=== PATIENT | female | born 1945 | race Caucasian/White ===

== ENCOUNTER 2021-02-27 05:29 | Observation (INO) | payer MEDICARE, BC ==
[~2021-02-27] VITALS: Ht 157.6 cm; Wt 77.3 kg
[2021-02-27 05:56] LABS: BASO % 0.4 % (0.0-2.0); EOS # 0.1 (0.0-0.7); GRAN # 6.7 (1.4-6.5); GRAN % 73.7 % (42.2-75.2); HEMATOCRIT 39.4 % (37.0-47.0); HEMOGLOBIN 12.4 g/dl (12.5-16.0); LYMPH # 1.7 (1.2-3.4); LYMPH % 18.9 % (20.0-51.0); MEAN CELL VOLUME 93 fl (80.0-100.0); MEAN CORPUSCULAR HEMOGLOBIN 29 pg (27.0-31.0); MEAN CORPUSCULAR HGB CONC 32 g/dl (33.0-37.0); MEAN PLATELET VOLUME 11.6 fl (7.4-10.4); MONO # 0.5 (0.1-0.6); MONO % 5.8 % (1.7-9.3); PLATELET COUNT 216 K/mm3 (130-400); RED BLOOD COUNT 4.25 M/mm3 (4.10-5.30); REDCELL DISTRIBUTION WIDTH-CV 13.3 % (11.5-14.5)
[2021-02-27 06:04] LABS: PROTHROMBIN TIME 10.7 SECONDS (9.7-12.8)
[2021-02-27 06:06] LABS: PARTIAL THROMBOPLASTIN TIME 27.4 SECONDS (26.0-37.0)
[2021-02-27 06:09] LABS: ALANINE AMINOTRANSFERASE 124 U/L (4-34); ALBUMIN 4.5 gm/dL (3.5-5.0); ALKALINE PHOSPHATASE 224 U/L (50-136); ANION GAP 7 mmol/L (7-16); AST,SGOT 371 U/L (15-37); BILIRUBIN,TOTAL 0.5 mg/dL (0.0-1.0); BLOOD UREA NITROGEN 21 mg/dL (7-17); CALCIUM 9.6 mg/dL (8.4-10.2); CARBON DIOXIDE 29 mmol/L (22-30); CHLORIDE 106 mmol/L (98-107); CREATININE, serum 0.82 (0.52-1.25); GLUCOSE 128 mg/dL (74-106); LIPASE 113 U/L (23-300); POTASSIUM 3.9 mmol/L (3.4-5.0); SODIUM 142 mmol/L (137-145); TOTAL PROTEIN 8.1 gm/dL (6.4-8.2)
[2021-02-27 06:22] LABS: TROPONIN-I < 0.012 ng/mL (0.000-0.035)
[2021-02-27] MEDS ORDERED: FLONASE NASAL S16 GM NS (09:04)
[2021-02-27] MEDS ORDERED: PLAVIX 75MG TAB75 MG PO ×2 (09:04→09:56)
[2021-02-27] MEDS ORDERED: WELLBUTRIN XL150 MG PO ×2 (09:05→10:04)
[2021-02-27] MEDS ORDERED: NORVASC 10MG10 MG PO ×2 (09:05→10:02)
[2021-02-27] MEDS ORDERED: SONATA 10MG10 MG PO ×2 (09:05→10:06)
[2021-02-27] MEDS ORDERED: PRINIVIL40 MG PO (09:05)
[2021-02-27] MEDS ORDERED: LASIX 20MG TABL20 MG PO ×2 (09:05→09:59)
[2021-02-27] MEDS ORDERED: ZOLOFT 50MG50 MG PO ×2 (09:06→10:03)
[2021-02-27] MEDS ORDERED: PROTONIX20 MG PO (09:06)
[2021-02-27] MEDS ORDERED: COREG 3.123.125 MG/T PO (09:06)
[2021-02-27] MEDS ORDERED: CRESTOR20 MG PO ×2 (09:13→10:01)
[2021-02-27 09:46] VITALS: BP 137/47; PULSE 61; TEMP 98
[2021-02-27] MEDS ORDERED: ASPIRIN 81M81 MG/TA2 PO ×2 (09:54→09:56)
[2021-02-27] MEDS ORDERED: CARAFATE 1GM1 G PO ×2 (09:56→10:02)
[2021-02-27] MEDS ORDERED: THE MEDICINE S200 M2 PO (09:57)
[2021-02-27] MEDS ORDERED: VOLTAREN 75 DR75 MG PO (09:58)
[2021-02-27] MEDS ORDERED: FLONASEALLERGY NS (09:59)
[2021-02-27] MEDS ORDERED: PEPCID 20MG TAB20 MG PO (10:00)
[2021-02-27] MEDS ORDERED: KLOR-CON M2020 MEQ PO (10:00)
[2021-02-27] MEDS ORDERED: ZESTRIL40 MG PO (10:00)
[2021-02-27] MEDS ORDERED: PRESERVISION1 SGL PO (10:01)
[2021-02-27] MEDS ORDERED: PROBIOTIC ACID1 EAC3 PO (10:03)
[2021-02-27] MEDS ORDERED: VITAMIND3 5000 PO (10:04)
--- NOTE | 2021-02-27 11:55 | NUR ---
Pt continues to do well. She is resting in bed with pain 3/10. Call light within reach, will continue to monitor
[2021-02-27 13:30] VITALS: BP 167/50; PULSE 67; TEMP 98.2
--- NOTE | 2021-02-27 14:15 | NUR ---
Pt seen by physician, new orders entered. Pt aware that she can have clear liquids at this time and then is to not have anything to eat or drink after midnight for procedure tomorrow. Pain medication given for pain rating 3/10. Pt states that it is just always there. Pt is standby assist to the restroom. IVF infusing. No other needs, will continue to monitor
[2021-02-27 15:46] VITALS: BP 139/54; PULSE 71; TEMP 98.1
--- NOTE | 2021-02-27 18:00 | NUR ---
Pt has continued to do well. Taking clear liquids slowly, minimal needs, call light within reach
[2021-02-27 19:31] VITALS: BP 146/45; PULSE 74; TEMP 98.4
--- NOTE | 2021-02-27 22:15 | NUR ---
Pt. sitting up in bed. Pt. is A&OX3, assessment complete. IV to lt. hand patent. Pt. denies pain or other needs, call light within reach.
[2021-02-27 23:42] VITALS: BP 149/48; PULSE 61; TEMP 98
[2021-02-28 03:34] VITALS: BP 149/62; PULSE 63; TEMP 98.3
[2021-02-28 06:11] LABS: BASO % 0.4 % (0.0-2.0); EOS # 0.2 (0.0-0.7); EOS % 3.4 % (0-4.0); GRAN # 2.6 (1.4-6.5); GRAN % 54.1 % (42.2-75.2); HEMOGLOBIN 11.3 g/dl (12.5-16.0); LYMPH # 1.6 (1.2-3.4); LYMPH % 34.5 % (20.0-51.0); MEAN CELL VOLUME 95 fl (80.0-100.0); MEAN CORPUSCULAR HEMOGLOBIN 30 pg (27.0-31.0); MEAN CORPUSCULAR HGB CONC 32 g/dl (33.0-37.0); MEAN PLATELET VOLUME 12.2 fl (7.4-10.4); MONO # 0.4 (0.1-0.6); MONO % 7.4 % (1.7-9.3); PLATELET COUNT 167 K/mm3 (130-400); RED BLOOD COUNT 3.79 M/mm3 (4.10-5.30); REDCELL DISTRIBUTION WIDTH-CV 13.5 % (11.5-14.5)
[2021-02-28 06:20] LABS: HEMATOCRIT 35.8 % (37.0-47.0)
[2021-02-28 06:26] LABS: ALBUMIN 3.7 gm/dL (3.5-5.0); BILIRUBIN,TOTAL 0.6 mg/dL (0.0-1.0); CALCIUM 8.9 mg/dL (8.4-10.2); CREATININE, serum 0.68 (0.52-1.25); POTASSIUM 4.2 mmol/L (3.4-5.0); TOTAL PROTEIN 6.5 gm/dL (6.4-8.2)
[2021-02-28 07:53] VITALS: BP 151/53; PULSE 61; TEMP 97.6
--- NOTE | 2021-02-28 09:57 | NUR ---
Patient is sitting in chair, alert and orientd, vss, reports low disconfort in abdomen 1 in the numeric rate. No further needs at the moment.
--- NOTE | 2021-02-28 11:10 | NUR ---
[facility] met with patient to discuss discharge planning. Patient lives in [place] with her friend, Bassem (ph#[phone]) and sees Dr. Dante Castellanos for primary care. Patient obtains medications from [facility] with no difficulties. Patient uses a CPAP and no other DME. Patient is independent with ADLS and plans to return home upon discharge. Patient does not have Advance Directives at this time and is not interested in setting up [facility] at this time. Patient's legal next of kin would be her children Edwina Gannon (ph#[phone]) and Terry Fabián. PT/OT evaluated patient and recommended home. Discharge Plan: Home with Bassem.
--- NOTE | 2021-02-28 11:14 | NUR ---
PT has been up and took a shower. IV to her right hand infiltrated, [facility]. Pt doing well, remains NPO, awaiting ERCP
[2021-02-28 12:50] VITALS: BP 151/53; PULSE 61; TEMP 97.6
--- NOTE | 2021-02-28 14:15 | NUR ---
Pt off the floor for ERCP
[2021-02-28 15:30] VITALS: BP 171/54; PULSE 73
--- NOTE | 2021-02-28 15:31 | NUR ---
Pt arrived to the floor from ERCP. She is alert and oriented, no pain complaints and is steady on her feet. Aware of the advancing of her diet. Has used the restroom.
[2021-02-28 16:00] VITALS: BP 152/43; PULSE 67
--- NOTE | 2021-02-28 16:07 | NUR ---
Pt tolerating clear liquid diet, no pain complaints, call light within reach.
--- NOTE | 2021-02-28 18:17 | NUR ---
Patient is sitting at bed side, reports pain in her legs, and lower back. Rates it 8 in a numeric scale. Review of available pain meds to provide.
--- NOTE | 2021-02-28 18:30 | NUR ---
Pt having complaints of pain in her lower back/leg. She stated that she has this often and usually takes Tylenol. Attempted to call [facility] with no answer. IV MS given, report given to SHELBY Parra
[2021-02-28 20:18] VITALS: BP 164/80; PULSE 64; TEMP 98.3
--- NOTE | 2021-02-28 21:30 | NUR ---
Pt. sitting up at bedside. Pt. is A&OX3, assessment complete. Pt. nauseated and vomited after giving zofran. New order received for phenergan, giving per orders. Pt. denies pain or other needs, call light within reach.
[2021-03-01 00:24] VITALS: BP 147/56; PULSE 90; TEMP 98.8
[2021-03-01 04:33] VITALS: BP 151/53; PULSE 74; TEMP 98.5
[2021-03-01 06:41] LABS: BASO % 0.1 % (0.0-2.0); EOS % 0.6 % (0-4.0); GRAN # 4.7 (1.4-6.5); GRAN % 70.5 % (42.2-75.2); HEMOGLOBIN 11.1 g/dl (12.5-16.0); LYMPH # 1.5 (1.2-3.4); LYMPH % 22.2 % (20.0-51.0); MEAN CELL VOLUME 94 fl (80.0-100.0); MEAN CORPUSCULAR HEMOGLOBIN 29 pg (27.0-31.0); MEAN CORPUSCULAR HGB CONC 31 g/dl (33.0-37.0); MONO # 0.4 (0.1-0.6); MONO % 6.3 % (1.7-9.3); PLATELET COUNT 163 K/mm3 (130-400); RED BLOOD COUNT 3.83 M/mm3 (4.10-5.30); REDCELL DISTRIBUTION WIDTH-CV 13.3 % (11.5-14.5)
[2021-03-01 06:46] LABS: ALBUMIN 3.6 gm/dL (3.5-5.0); BILIRUBIN,TOTAL 0.3 mg/dL (0.0-1.0); CALCIUM 8.7 mg/dL (8.4-10.2); CREATININE, serum 0.62 (0.52-1.25); POTASSIUM 3.2 mmol/L (3.4-5.0); TOTAL PROTEIN 6.6 gm/dL (6.4-8.2)
[2021-03-01 06:58] LABS: HEMATOCRIT 35.9 % (37.0-47.0)
--- NOTE | 2021-03-01 07:20 | NUR ---
Spoke to [facility] about K+ level,K+ replacement ordered
[2021-03-01 08:00] VITALS: BP 106/45; PULSE 75; TEMP 98
[2021-03-01] MEDS ORDERED: ZOFRAN ODT4 MG PO (08:45)
--- NOTE | 2021-03-01 09:15 | NUR ---
Hospitalist team rounded. Patient up and ambulated halls with therapy. Patient breakfast ordered. Denies nausea at this time. Pain rating 0/10. [place] for discharge home this afternoon.
[2021-03-01 12:00] VITALS: BP 154/55; PULSE 64; TEMP 98.2
--- NOTE | 2021-03-01 12:02 | NUR ---
Patient will discharge home today 03/01. There are no further needs at this time.
--- NOTE | 2021-03-01 12:37 | NUR ---
Patient ready to discharge home. Patient friend to take her home. She tolerated a light breakfast, she was not impressed with the quality of food. Denies nausea or pain at this time. We reviewed all discharge paperwork. Diet & activity reviewed. Home med list & script for johannajulian reviewed. All follow up appts reviewed. Denies questions or concerns. Wheeled out with all belongings.
[2021-08-13] MEDS ORDERED: PROTONIX20 MG PO (12:40)
== END 2021-03-01 12:40 | disposition home or self-care (01) ==
LOC: COL.ER 05:29 → SURG 08:04
PROVIDERS: Emergency Medicine; Physician Assistant
DX: K83.1 Obstruction of bile duct (principal); K31.89 Other diseases of stomach and duodenum; K83.8 Other specified diseases of biliary tract; E78.5 Hyperlipidemia, unspecified; I10 Essential (primary) hypertension; F32.9 Major depressive disorder, single episode, unspecified; M19.90 Unspecified osteoarthritis, unspecified site; I65.29 Occlusion and stenosis of unspecified carotid artery; Z87.11 Personal history of peptic ulcer disease; Z90.49 Acquired absence of other specified parts of digestive tract; Z79.82 Long term (current) use of aspirin; Z79.02 Long term (current) use of antithrombotics/antiplatelets; Z88.5 Allergy status to narcotic agent; Z88.8 Allergy status to other drugs, medicaments and biological substances; G47.33 Obstructive sleep apnea (adult) (pediatric)
CPT/HCPCS: C1769; C2625; G0378; J2270; J2405; J2550; J2704; J3010; J7030; Q9967

== ENCOUNTER → 2021-07-02 | Outpatient (CLI) | payer MEDICARE, BC ==
[~2021-07-02] MED LIST: ASPIRIN 81M81 MG/TA2 PO; CARAFATE 1GM1 G PO; COREG 3.123.125 MG/T PO; CRESTOR20 MG PO; FLONASE NASAL S16 GM NS; FLONASEALLERGY NS; KLOR-CON M2020 MEQ PO; LASIX 20MG TABL20 MG PO; NORVASC 10MG10 MG PO; PEPCID 20MG TAB20 MG PO; PLAVIX 75MG TAB75 MG PO; PRESERVISION1 SGL PO; PRINIVIL40 MG PO; PROBIOTIC ACID1 EAC3 PO; PROTONIX20 MG PO; SONATA 10MG10 MG PO; THE MEDICINE S200 M2 PO; VITAMIND3 5000 PO; VOLTAREN 75 DR75 MG PO; WELLBUTRIN XL150 MG PO; ZESTRIL40 MG PO; ZOFRAN ODT4 MG PO; ZOLOFT 50MG50 MG PO
== END ==
LOC: COL.RAD 09:39
DX: Z01.812 Encounter for preprocedural laboratory examination (principal); R59.0 Localized enlarged lymph nodes; N85.9 Noninflammatory disorder of uterus, unspecified
CPT/HCPCS: Q9967

== ENCOUNTER 2021-07-15 11:17 | Emergency (ER) | payer MEDICARE, BC ==
[~2021-07-15] VITALS: Ht 160 cm; Wt 77.3 kg
[2021-07-15 11:28] VITALS: TEMP 98.5
[2021-07-15 12:01] VITALS: BP 134/68; PULSE 59
[2021-08-13] MEDS ORDERED: PROTONIX20 MG PO (12:40)
== END 2021-07-15 12:07 | disposition home or self-care (01) ==
LOC: COL.ER 11:17
DX: I10 Essential (primary) hypertension (principal); Z79.899 Other long term (current) drug therapy

== ENCOUNTER → 2021-08-13 | Outpatient (CLI) | payer MEDICARE, BC ==
[~2021-08-13] VITALS: Ht 160 cm; Wt 80.4 kg
[2021-08-13 12:49] VITALS: BP 172/60; PULSE 50; TEMP 98
[2021-08-13 14:20] VITALS: BP 199/76; PULSE 56
== END ==
LOC: COL.RAD 08-01 12:30
DX: M50.122 Cervical disc disorder at C5-C6 level with radiculopathy (principal)
CPT/HCPCS: J1100

== ENCOUNTER → 2021-09-09 | Outpatient (CLI) | payer MEDICARE, BC | LOC: COL.RAD 12:22 | DX: K57.10 Diverticulosis of small intestine without perforation or abscess without bleeding (principal); Z90.49 Acquired absence of other specified parts of digestive tract; K44.9 Diaphragmatic hernia without obstruction or gangrene | CPT/HCPCS: Q9967 ==

== ENCOUNTER → 2022-01-21 | Outpatient (CLI) | payer MEDICARE, BC | LOC: MC.RAD 11:09 | DX: Z12.31 Encounter for screening mammogram for malignant neoplasm of breast (principal) ==